=== PATIENT | female | born 1940 | race Asian ===

== ENCOUNTER 2017-08-19 14:25 | Inpatient (IN) | payer MEDICARE, MEDICAID ==
[~2017-08-19] VITALS: Ht 154.9 cm; Wt 46.3 kg
[2017-08-19] MEDS ORDERED: ATEN-42 PO (14:35)
[2017-08-19] MEDS ORDERED: METHYLPREDNISOLONE SOD SUCC 125 MG/2 ML VIAL IV STA (21:18)
[2017-08-19] MEDS ORDERED: ALBUTEROL (0.083%) 2.5MG/3ML NEB HHN STA (21:18)
[2017-08-19 21:37] LABS: BASOPHILS % 0.8 % (0.0-2.0); EOSINOPHILS % 0.3 % (0.0-5.0); HEMATOCRIT. 25.9 % (36.0-48.0); HEMOGLOBIN. 8.2 g/dL (12.0-16.0); LYMPHOCYTES % 16.7 % (20.0-50.0); MEAN CORPUSCULAR HEMOGLOBIN 28.1 pg (28.0-32.0); MEAN CORPUSCULAR VOLUME 88.5 fL (81.0-99.0); MONOCYTES % 14.9 % (2.0-8.0); NEUTROPHILS % 67.3 % (40.0-76.0); PLATELET 142 x1000/uL (130-400); RED BLOOD CELL COUNT 2.93 mill/uL (4.2-5.4); RED CELL DISTRIBUTION WIDTH 16.8 % (11.6-14.6)
[2017-08-19 21:42] LABS: INR 1.2; PROTHROMBIN TIME 12.4 sec (9.4-11.6)
[2017-08-19 21:51] LABS: CARBON DIOXIDE 28 mEq/L (21-32); CHLORIDE 104 mEq/L (98-107); TROPONIN I 0.06 ng/mL (0.00-0.04)
[2017-08-19] MEDS ORDERED: ASPIRIN 81MG TABLET PO ONE (22:45)
[2017-08-19] MEDS ORDERED: FUROSEMIDE 40MG/4ML VIAL IV ONE (22:45)
[2017-08-19] MEDS ORDERED: ZOLPIDEM TARTRATE 5MG TABLET PO PRN (23:00)
[2017-08-19] MEDS ORDERED: MAGNESIUM/ALUMINUM HYDROXIDE/SIMETHICONE 30ML UDC PO PRN (23:00)
[2017-08-19] MEDS ORDERED: ENOXAPARIN 40MG/0.4ML SYR SUBCUT SCH (23:00)
[2017-08-19] MEDS ORDERED: TRAMADOL 50MG TABLET PO PRN (23:00)
[2017-08-19] MEDS ORDERED: CLONIDINE 0.1MG TABLET PO PRN (23:00)
[2017-08-19] MEDS ORDERED: NITROGLYCERIN 0.4MG TABLET SL SL PRN (23:00)
[2017-08-19] MEDS ORDERED: MORPHINE SULFATE 2 MG/ML CPJ (NOT FOR IM USE) IV PRN (23:00)
[2017-08-19] MEDS ORDERED: DOCUSATE SODIUM 100MG CAPSULE PO PRN (23:00)
[2017-08-19] MEDS ORDERED: NA PHOS,M-B/NA PHOS,DI-BA ENEMA 118ML PR PRN (23:00)
[2017-08-19] MEDS ORDERED: ONDANSETRON HCL 4MG/2ML VIAL IV PRN (23:00)
[2017-08-19] MEDS ORDERED: IPRATROPIUM/ALBUTEROL 0.5-3(2.5)MG/3ML NEB INH PRN (23:00)
[2017-08-19] MEDS ORDERED: GUAIFENESIN 200MG/10ML SUGAR FREE UDC PO PRN (23:00)
[2017-08-19] MEDS ORDERED: DIPHENHYDRAMINE 50MG/ML VIAL IV PRN (23:00)
[2017-08-19] MEDS ORDERED: ACETAMINOPHEN 325MG TABLET PO PRN (23:00)
[2017-08-20 00:09] LABS: FOLIC ACID (FOLATE) SERUM > 20.00 ng/mL (>5.38)
[2017-08-20 00:15] LABS: VITAMIN B12 SERUM 1303 pg/mL (211-911)
[2017-08-20] MEDS ORDERED: FAMOTIDINE 20MG/2ML VIAL IV SCH (09:00)
[2017-08-20] MEDS ORDERED: FUROSEMIDE 40MG/4ML VIAL IVP SCH (09:00)
[2017-08-20] MEDS ORDERED: SPIRONOLACTONE 25MG TABLET PO SCH (09:00)
[2017-08-20] MEDS ORDERED: BENA20TA3 PO (10:36)
[2017-08-20] MEDS ORDERED: ALBU18HF2 INH (10:43)
[2017-08-20] MEDS ORDERED: LEVO25TA7 PO (10:43)
[2017-08-20] MEDS ORDERED: ATEN50TA PO (10:43)
[2017-08-20] MEDS ORDERED: SITA50TA3 PO (10:43)
[2017-08-20] MEDS ORDERED: TRAM50TA3 PO (10:43)
[2017-08-20 11:04] VITALS: BP 166/87
[2017-08-20 12:00] VITALS: BP 129/87
[2017-08-20] MEDS ORDERED: HYDROCODONE/ACETAMINOPHEN 5/325MG TABLET PO PRN (14:15)
[2017-08-20] MEDS ORDERED: POTASSIUM CHLORIDE 10MEQ TABLET SR PO NR (14:15)
[2017-08-20 14:51] LABS: BG CARBOXYHEMOGLOBIN 0.3 % (0.5-1.5); BG DEOXYHEMOGLOBIN 6.5 % (0.0-5.0); BG FRACTION INSPIRED OXYGEN 21; BG HCO3 ACT 28.1 mmol/L (22.0-26.0); BG METHEMOGLOBIN 0.3 % (0.0-1.5); BG OXYGEN SATURATION 93.5 % (92.0-98.5); BG OXYHEMOGLOBIN 92.9 % (94.0-97.0); BG PCO2 40.2 mmHg (35.0-45.0); BG PH 7.462 (7.350-7.450); BG PO2 68.6 mmHg (75.0-100.0); BG SAMPLE SITE RIGHT BRACHIAL; BG TOTAL HEMOGLOBIN 9.9 g/dL (12.0-18.0); BG VENT MODE ROOM AIR
[2017-08-20 15:54] LABS: BASOPHILS % 0.1 % (0.0-2.0); EOSINOPHILS % 0.1 % (0.0-5.0); HEMATOCRIT. 27.7 % (36.0-48.0); HEMOGLOBIN. 8.9 g/dL (12.0-16.0); LYMPHOCYTES % 9.5 % (20.0-50.0); MEAN CORPUSCULAR HEMOGLOBIN 28.6 pg (28.0-32.0); MEAN CORPUSCULAR VOLUME 88.8 fL (81.0-99.0); NEUTROPHILS % 82.3 % (40.0-76.0); PLATELET 159 x1000/uL (130-400); RED BLOOD CELL COUNT 3.12 mill/uL (4.2-5.4); RED CELL DISTRIBUTION WIDTH 16.8 % (11.6-14.6)
[2017-08-20 16:00] VITALS: BP 130/73
[2017-08-20] MEDS ORDERED: LEVOFLOXACIN 500MG PREMIX 100 ML IV NR (16:00)
[2017-08-20] MEDS: ALBUTEROL (0.083%) 2.5MG/3ML NEB HHN SCH ×2 (17:03→21:34)
[2017-08-20] MEDS: INSULIN LISPRO 100 UNITS/ML SUBCUT SCH ×2 (17:15→21:00)
[2017-08-20] MEDS ORDERED: DEXTROSE 50% WATER 50ML SYRINGE IV PRN (17:15)
[2017-08-20] MEDS: METHYLPREDNISOLONE SOD SUCC 40 MG/ML VIAL IV SCH (17:21)
[2017-08-20] MEDS: PANTOPRAZOLE 40MG DR TABLET PO SCH ×2 (17:21→21:45)
[2017-08-20] MEDS: ASPIRIN 81MG TABLET PO SCH (17:21)
[2017-08-20] MEDS: ENOXAPARIN 30MG/0.3ML SYR SUBCUT SCH (17:22)
[2017-08-20] MEDS: SODIUM CHLORIDE 0.9% 1,000 ML IV SCH (17:32)
[2017-08-20 20:00] VITALS: BP 114/74
[2017-08-20] MEDS: BLOOD SUGAR DIAGNOSTIC STRIP TEST SCH (21:00)
[2017-08-21] VITALS: BP 100/59
[2017-08-21] MEDS: ALBUTEROL (0.083%) 2.5MG/3ML NEB HHN SCH ×6 (01:00→21:02)
[2017-08-21 04:00] VITALS: BP 98/55
[2017-08-21] MEDS: PANTOPRAZOLE 40MG DR TABLET PO SCH (05:47)
[2017-08-21] MEDS: INSULIN LISPRO 100 UNITS/ML SUBCUT SCH ×4 (06:24→20:47)
[2017-08-21] MEDS: BLOOD SUGAR DIAGNOSTIC STRIP TEST SCH ×4 (06:24→20:47)
[2017-08-21 08:00] VITALS: BP 126/72
[2017-08-21] MEDS: ENOXAPARIN 30MG/0.3ML SYR SUBCUT SCH (09:00)
[2017-08-21] MEDS: ASPIRIN 81MG TABLET PO SCH (09:46)
[2017-08-21] MEDS: METHYLPREDNISOLONE SOD SUCC 40 MG/ML VIAL IV SCH (09:46)
[2017-08-21 12:00] VITALS: BP 125/79
[2017-08-21] MEDS: LEVOFLOXACIN 250MG PREMIX 50 ML IV SCH (15:49)
[2017-08-21 16:00] VITALS: BP 136/82
[2017-08-21 20:00] VITALS: BP 136/70
[2017-08-21] MEDS ORDERED: TEMAZEPAM 15MG CAPSULE PO PRN (20:15)
[2017-08-22] VITALS: BP 140/70
[2017-08-22] MEDS: ALBUTEROL (0.083%) 2.5MG/3ML NEB HHN SCH ×6 (01:18→21:55)
[2017-08-22] MEDS: SODIUM CHLORIDE 0.9% 1,000 ML IV SCH (01:24)
[2017-08-22] MEDS: BLOOD SUGAR DIAGNOSTIC STRIP TEST SCH ×4 (06:10→20:25)
[2017-08-22] MEDS: INSULIN LISPRO 100 UNITS/ML SUBCUT SCH ×4 (06:10→20:25)
[2017-08-22 08:30] VITALS: BP 132/68
[2017-08-22] MEDS: METHYLPREDNISOLONE SOD SUCC 40 MG/ML VIAL IV SCH (09:28)
[2017-08-22] MEDS: ENOXAPARIN 30MG/0.3ML SYR SUBCUT SCH (09:28)
[2017-08-22] MEDS: FAMOTIDINE 20MG TABLET PO SCH (09:28)
[2017-08-22] MEDS: ASPIRIN 81MG TABLET PO SCH (09:29)
[2017-08-22 12:00] VITALS: BP 153/76
[2017-08-22] MEDS: LEVOFLOXACIN 250MG PREMIX 50 ML IV SCH (15:14)
[2017-08-22 16:00] VITALS: BP 147/80
[2017-08-22 20:00] VITALS: BP 146/80
[2017-08-23] VITALS: BP 160/79
[2017-08-23] MEDS: ALBUTEROL (0.083%) 2.5MG/3ML NEB HHN SCH ×4 (01:25→12:00)
[2017-08-23 04:00] VITALS: BP 154/76
[2017-08-23] MEDS: INSULIN LISPRO 100 UNITS/ML SUBCUT SCH ×2 (06:29→12:15)
[2017-08-23] MEDS: BLOOD SUGAR DIAGNOSTIC STRIP TEST SCH ×2 (06:29→11:45)
[2017-08-23 08:00] VITALS: BP 137/78
[2017-08-23] MEDS: METHYLPREDNISOLONE SOD SUCC 40 MG/ML VIAL IV SCH (09:25)
[2017-08-23] MEDS: FAMOTIDINE 20MG TABLET PO SCH (09:25)
[2017-08-23] MEDS: ASPIRIN 81MG TABLET PO SCH (09:25)
[2017-08-23] MEDS: ENOXAPARIN 30MG/0.3ML SYR SUBCUT SCH (09:26)
[2017-08-23] MEDS: SODIUM CHLORIDE 0.9% 1,000 ML IV SCH (09:26)
[2017-08-23] MEDS ORDERED: LEVOFLOXACIN 250MG TABLET PO SCH (11:00)
[2017-08-23 14:58] VITALS: BP 170/92
== END 2017-08-23 15:35 | disposition home or self-care (01) | DRG 189 ==
LOC: ER 14:44 → SUPCPDRO 22:57 → 5WST 23:21 → EDBEDREQ 23:31 → CANRESERV 08-20 08:37 → ENRESERV 08-20 08:37
PROVIDERS: ADMIT Internal Medicine; ATTEND Internal Medicine
DX: J96.00 Acute respiratory failure, unspecified whether with hypoxia or hypercapnia (principal); Z99.81 Dependence on supplemental oxygen; D64.9 Anemia, unspecified; J44.0 Chronic obstructive pulmonary disease with (acute) lower respiratory infection; E11.9 Type 2 diabetes mellitus without complications; E03.9 Hypothyroidism, unspecified; J44.1 Chronic obstructive pulmonary disease with (acute) exacerbation; J20.9 Acute bronchitis, unspecified; I10 Essential (primary) hypertension; Z87.01 Personal history of pneumonia (recurrent); Z79.899 Other long term (current) drug therapy; Z88.0 Allergy status to penicillin
CPT/HCPCS: 36415; 36600; 71045; 71250; 78582; 80053; 80061; 82375; 82607; 82746; 82805; 82962; 83036; 83540; 83550; 83880; 84484; 85025; 85610; 93005; 93306; 94640; 94664; 96374; 96375; 97116; 97162; 97530; 99291; A9558; C1893; J1650; J1940; J1956; J2920; J2930; J7030; J7611